=== PATIENT | female | born 1985 | race Caucasian/White ===

== ENCOUNTER 2024-09-02 09:00 | Outpatient (RCR) | payer BC, SELFPAY | END 2024-12-31 23:59 | disposition home or self-care (01) | PROVIDERS: PCP Nurse Practitioner Family; Visit Provider Nurse Practitioner Family | DX: M54.16 Radiculopathy, lumbar region (principal); M54.50 Low back pain, unspecified; R20.2 Paresthesia of skin; Z51.89 Encounter for other specified aftercare | CPT/HCPCS: 97012; 97032; 97110; 97140; 97161 ==

== ENCOUNTER 2024-09-09 14:19 | Outpatient (CLI) | payer BC, SELFPAY ==
--- NOTE | 2024-09-09 14:30 | CRLHL7_ITS ---
For Patients: As a result of the Century Cures Act, medical imaging exams and procedure reports are released immediately into your electronic medical record. You may view this report before your referring provider. If you have questions, please contact your health care provider. INDICATION: Low back pain. Lumbar radiculopathy. TECHNIQUE: Noncontrast sagittal and axial T1, T2, and sagittal STIR sequences are provided. No comparisons. FINDINGS: The overall stature, alignment and intrinsic marrow signal of the lumbar spine is within normal limits. Conus is normal. L5-S1: There is a large left lateral recess disc extrusion with cephalad migration. The extruded disc fragment has a diameter of 12 millimeters and extends cephalad a distance of 15 millimeters. There is resultant severe left lateral recess narrowing with compression of the traversing left S1 nerve root. Mild central canal narrowing. No foraminal narrowing. Remainder of the lumbar spine is unremarkable, specifically no evidence of suspicious central canal or foraminal narrowing. IMPRESSION: 1. Large left lateral recess disc extrusion with cephalad migration at L5-S1 resulting in severe left lateral recess narrowing with compression of the traversing left S1 nerve root and mild central canal narrowing. 2. Otherwise, unremarkable MRI of the lumbar spine. Dictated by Richardson Lin MD @ 09/09/2024 6:56:08 PM (Electronically Signed)
== END 2024-09-09 14:20 | disposition home or self-care (01) ==
LOC: MRI 14:20
PROVIDERS: PCP Nurse Practitioner Family; Visit Provider Nurse Practitioner Family
DX: M54.16 Radiculopathy, lumbar region (principal); M51.27 Other intervertebral disc displacement, lumbosacral region
CPT/HCPCS: 72148

== ENCOUNTER 2024-09-29 08:11 | Outpatient (CLI) | payer BC, SELFPAY | END 2024-09-29 08:12 | disposition home or self-care (01) | LOC: INJ CL 08:12 | PROVIDERS: PCP Nurse Practitioner Family; Visit Provider Family Medicine | DX: M54.16 Radiculopathy, lumbar region (principal); M51.26 Other intervertebral disc displacement, lumbar region | CPT/HCPCS: 64483; J1100; Q9966 ==

== ENCOUNTER 2024-11-02 10:21 | Outpatient (CLI) | payer BC, SELFPAY | END 2024-11-02 10:22 | disposition home or self-care (01) | PROVIDERS: PCP Nurse Practitioner Family; Visit Provider Nurse Practitioner Family | DX: Z01.818 Encounter for other preprocedural examination (principal) | CPT/HCPCS: 80053; 85025 ==

== ENCOUNTER 2025-10-14 09:11 | Emergency (ER) | payer BC, SELFPAY ==
--- OUTSIDE RECORDS SUMMARY | 2025-10-14 09:15 | XMS_ITS | Clinical Summary ---
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 3 Active omeprazole (PRILOSEC) 40 mg Delayed-Release capsule Take 40 mg by mouth once daily. Active fluticasone (50 mcg per actuation) nasal solution (FLONASE) Inhale 1 [place] into affected nostril(s) once daily if needed for Rhinitis. 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 Gender Identity Not on file Sexual Orientation Not on file Obstetrics History Last Filed Vital Signs Vital Sign Reading Time Taken Comments Blood Pressure 142/81 12/07/2024 11:53 AM DIE TRY OUT WORKER Pulse 85 12/07/2024 11:53 AM DIE TRY OUT WORKER Temperature 36.8 C (98.2 F) 12/07/2024 11:53 AM DIE TRY OUT WORKER Respiratory Rate 16 12/07/2024 11:53 AM DIE TRY OUT WORKER Oxygen Saturation 99% 12/07/2024 11:53 AM DIE TRY OUT WORKER Inhaled Oxygen Concentration - - Weight 105.7 kg (233 lb) 11/10/2024 8:45 AM DIE TRY OUT WORKER Height 180.3 cm (5' 11) 11/10/2024 8:45 AM DIE TRY OUT WORKER Body Mass Index 32.5 11/10/2024 8:45 AM DIE TRY OUT WORKER Plan of Treatment Health Maintenance Due Date Last Done Comments Tetanus booster 1998 Depression screening for age 12+ 1999 HIV for age 15-65 2002 BMI (ht and wt on same day) for age 18+ 2005 Hepatitis C screening for age 18-79 2005 Hepatitis B series for 19+ (1 of 3 - 19+ 3-dose series) 2006 HPV series for age 9-45 (1 - 3-dose SCDM series) 2014 Pap test for age 21-65 11/30/2024 , 11/30/2021, 10/13/2018, Additional history exists COVID-19 vaccine series (2024- season) 2025 11/23/2021, 03/08/2021, 02/08/2021 Influenza Vaccine (#1) 2025 RSV vaccine for adults or (1 - 1-dose 75+ series) 2062 Pneumococcal series for age 6-49 Aged Out No longer eligible based on patient's age to complete this topic Procedures Procedure Name Priority Date/Time Associated Diagnosis Comments HPV HIGH RISK Routine 11/30/2021 1:45 PM DIE TRY OUT WORKER from Last 3 Months or Most Recently Relevant to Health Maintenance Results * HPV HIGH RISK (11/30/2021 1:45 PM DIE TRY OUT WORKER) TYPE 16 Negative Negative 12/05/2021 11:54 AM DIE TRY OUT WORKER [facility] TYPE 18 Negative Negative 12/05/2021 11:54 AM DIE TRY OUT WORKER [facility] OTHER HIGH RISK TYPES Negative Negative 12/05/2021 11:54 AM DIE TRY OUT WORKER [facility] Other (Cervical/Vagina l) 11/30/2021 1:45 PM DIE TRY OUT WORKER 12/04/2021 6:51 AM DIE TRY OUT WORKER Narrative [facility] - 12/05/2021 11:54 AM DIE TRY OUT WORKER HPV types 16, 18, 31, 33, 35, 39, 45, 51, 52, 56, 58, 59, 66 and 68 DNA were undetectable or below the pre-set threshold. Methodology: [employer] Gina 4800 HPV Test us Dinorah Maxwell MD MICROBIOLOGY Fi nal Result [facility] [address] [place] [address], from Last 3 Months or Most Recently Relevant to Health Maintenance Insurance Advance Directives * Full Code (Latest Code Status on File) Date Activated Date Inactivated Comments 11/10/2024 8:31 AM 11/10/2024 5:12 PM Question Answer Comments Code Status Discussion: Per Existing Order Care Teams Feeder Switchboard Operator Relationship Specialty Start Date End Date Pcp, No . PCP - General 11/02/24
[2025-10-14 09:25] VITALS: BP 154/88; PULSE 77; RESP 18; TEMP 37; O2SAT 98; BMI 31.2
--- NOTE | 2025-10-14 09:35 | ED_ITS ---
HPI - Extremity Injury (Lower) General Time Seen by Provider: 09:35 Date Seen: 10/14/25 Chief Complaint: Extremity Pain/Injury, Lower Stated Complaint: R ankle injury Time Seen by Provider: 10/14/25 09:35 Source: patient and RN notes reviewed Mode of arrival: ambulatory Limitations: no limitations History of Present Illness HPI Narrative: This 40-year-old female is presenting to the ER with concern of a right ankle injury. She twisted her right ankle walking down the stairs today. She reported to nursing that right lower extremity feels tight from her toes to her knee. She denies any prior injury to this leg or ankle. She was able to demonstrate wiggling her toes to the nurse. They have 2 steps between her living room area in kitchen, she came down on her leg with all of her weight, just did not pay attention to the steps, states she actually really just for got they were there. She had pain, is not completely sure what happened but there is swelling along the outside of the ankle. It is the ankle that hurts. complaint: ankle injury Related Data Home Medications ?Medication ?Instructions ?Recorded ?Confirmed fluticasone propionate 50 1 spray intranasal Q12H PRN 07/13/22 10/14/25 mcg/actuation nasal spray,suspension levonorgestrel (Mirena) 1 device intrauterine ONCE 1 12/18/22 10/14/25 Allergies Allergy/AdvReac Type Severity Reaction Status Date / Time Penicillins Allergy Mild Verified 10/14/25 09:24 Sulfa (Sulfonamide Allergy Mild Verified 10/14/25 09:24 Antibiotics) Review of Systems Narrative: As per HPI. PFSH PFS Medical History Lumbar back pain with radiculopathy affecting left lower extremity ?M54.16 - Radiculopathy, lumbar region (ICD-10) Intervertebral disc extrusion Surgical History History of microdiscectomy ?Z98.890 - Other specified postprocedural states (ICD-10) History of nasal surgery ?Z98.890 - Other specified postprocedural states (ICD-10) Normal spontaneous vaginal delivery ?O80 - Encounter for full-term uncomplicated delivery (ICD-10) Family History Family/Other Breast cancer Colon cancer Ovarian cancer Maternal Grandfather High blood pressure High cholesterol Mother Marx syndrome Sister Marx syndrome Social History Narrative: . 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 Alcohol, rare. No illicit drug type. Non-smoker. Smoking Status: Never smoker Exam Const: Vital Signs, click to edit/add: Vital Signs - 24 hr 10/14/25 09:25 Temperature 98.6 F Pulse Rate [Pulse Oximeter] 77 Respiratory Rate 18 Blood Pressure [Ri ght Upper Arm] 154/88 H Pulse Oximetry 98 Oxygen Delivery Me thod Room Air Kamila is a 40-year-old female that is alert, interactive, no apparent distress, lying on the bed in her room. She has obvious lateral ankle swelling, pain along the distal fibula there. Ankle mortise seems to be intact, no ankle joint swelling noted. She has good dorsalis pedis pulses, normal sensation of her toes. The midfoot, foot and toes do not have any swelling or ecchymosis. She has no medial malleolus tenderness. Documenting provider has reviewed patient's vital signs: yes Course Course ED Course: There is concern for distal fibula fracture given her clinical examination. We will do a three view x-ray of this ankle. She is declining any Tylenol or ibuprofen at this point, states she has not eaten yet. We will get her an ice pack to help decrease pain and swelling while we wait for x-ray imaging. Reevaluation(s) Time of Reevaluation #1: 10:20 Reevaluation #1: Have reviewed with patient her x-ray results, did provide her a copy. Thankfully there is no fracture. We discussed that this would be considered a sprain clinically. Her asked about tendons. Reviewed that with a sprain, it is at exactly the soft tissues/tendons that her injured. It is recommended for ongoing activity and mobility within tolerance of pain. If she is having significant discomfort, not improving over the next 5-7 days, would recommend re-evaluation with Orthopedics. Discussed getting an Aircast or gel cast for ankle sprain, she can get these at facilities that sell durable medical goods. Vital Signs Vital signs: Initial Vital Signs Temperature 98.6 F 10/14/25 09:25 Temperature Source Temporal Artery Scan 10/14/25 09:25 Pulse Rate 77 10/14/25 09:25 Respiratory Rate 18 10/14/25 09:25 Blood Pressure 154/88 H 10/14/25 09:25 Blood Pressure Mean 110 H 10/14/25 09:25 Blood Pressure Position Semi-Fowlers 10/14/25 09:25 Pulse Oximetry 98 10/14/25 09:25 Oxygen Delivery Method Room Air 10/14/25 09:25 Vital Signs Temperature 98.6 F 10/14/25 09:25 Pulse Rate 77 10/14/25 09:25 Respiratory Rate 18 10/14/25 09:25 Blood Pressure 154/88 H 10/14/25 09:25 Pulse Oximetry 98 10/14/25 09:25 Oxygen Delivery Method Room Air 10/14/25 09:25 Temperature 98.6 F 10/14/25 09:25 Pulse Rate 77 10/14/25 09:25 Respiratory Rate 18 10/14/25 09:25 Blood Pressure 154/88 H 10/14/25 09:25 Pulse Oximetry 98 10/14/25 09:25 Oxygen Delivery Method Room Air 10/14/25 09:25 MDM - Extremity Injury (Lower) Imaging Data XR right ankle: Attestation: I have reviewed the pertinent imaging results. My impression: Did visualize x-rays, I do not appreciate acute fracture, reviewed radiology reading as well. Radiologist's impression: Patient: CLAUDIA MORALES Facility:?[facility] Patient ID:?[id number] Site Patient ID:?[id number]. Site :?[id number] Study:?XRay-Extremity Right Ankle-10/14/2025 9:58:02 AM Ordering Physician:Yan Perry Final Report: INDICATION: Injury, fall COMPARISON: None. TECHNIQUE: Three views left ankle. FINDINGS: No acute or healing fracture. Normal joint alignment. Joint spaces are normal. No focal bone lesions. Normal bone mineralization. Soft tissue swelling. Small effusion. No foreign body. IMPRESSION: Left ankle joint effusion and soft tissue swelling. Underlying osseous structures are normal. Dictated by Jesusita Mccarthy MD @ 10/14/2025 9:59:39 AM (Electronic Signature) Discharge Plan Discharge Clinical Impression: Right ankle sprain Qualifiers: Encounter type: initial encounter Involved ligament of ankle: unspecified ligament Qualified Code(s): S93.401A - Sprain of unspecified ligament of right ankle, initial encounter Patient Disposition: Home, Self-Care Condition: Stable Instructions: Ankle Sprain (ED), Ankle Stirrup Splint (ED) Additional Instructions: Ice and elevate to help decrease pain and swelling. Can use an Curly wrap for compression. Do recommend obtaining an air ankle stirrup splint or gel ankle stirrup splint to be used for comfort and stability with ambulation. Can use Tylenol and ibuprofen as needed per bottle directions for pain control. If you are not improving over the next 5-7 days, feel you are worsening or have significant pain despite outlying treatment, would recommend follow up with Orthopedics. Orthopedic phone number for an appointment if you feel you need re-evaluation is [phone]. Activity Level: Activity as Tolerated Prescriptions: No Action Mirena 21 mcg/24 hours (8 yrs) 52 mg intrauterine device 1 device intrauterine ONCE Rx Instructions: as a single dose fluticasone propionate 50 mcg/actuation spray,suspension 1 spray intranasal Q12H PRN Follow Up/Referrals: Kamini Interiano, PILOT MANAGER, HAIRSPRING ASSEMBLER [Primary Care Provider, Family Practice] Stand Alone Forms: MyHealth Info Instructions
--- NOTE | 2025-10-14 09:42 | CRLHL7_ITS ---
For Patients: As a result of the Cures Act, medical imaging exams and procedure reports are released immediately into your electronic medical record. You may view this report before your referring provider. If you have questions, please contact your health care provider. INDICATION: Injury, fall COMPARISON: None. TECHNIQUE: Three views left ankle. FINDINGS: No acute or healing fracture. Normal joint alignment. Joint spaces are normal. No focal bone lesions. Normal bone mineralization. Soft tissue swelling. Small effusion. No foreign body. IMPRESSION: Left ankle joint effusion and soft tissue swelling. Underlying osseous structures are normal. Dictated by Jesusita Mccarthy MD @ 10/14/2025 9:59:39 AM (Electronically Signed)
== END 2025-10-14 10:38 | disposition home or self-care (01) ==
PROVIDERS: Emergency Provider Family Medicine; PCP Nurse Practitioner Family
DX: S93.401A Sprain of unspecified ligament of right ankle, initial encounter (principal); X50.0XXA Overexertion from strenuous movement or load, initial encounter; Y93.01 Activity, walking, marching and hiking
CPT/HCPCS: 73610; 99282; 99283